=== PATIENT | male | born 1955 | race Caucasian/White ===

== ENCOUNTER 2023-11-07 15:31 | Inpatient (IN) | payer OTHER, MEDICAID ==
[~2023-11-07] VITALS: Ht 175.3 cm; Wt 75.3 kg
[2023-11-07 15:33] VITALS: BP_SYST 105; PULSE 92; RESP 18; TEMP 97.6; O2SAT 99
[2023-11-07] MEDS: MORPHINE 4 MG INJ. 4 MG/ML VIAL IM ONE (15:55)
[2023-11-07 16:41] LABS: BASOPHILS % (AUTO) 0.7 % (0.0-2.0); EOSINOPHILS # (AUTO) 0.3 K/uL (0.0-0.4); EOSINOPHILS % (AUTO) 3.9 % (0.0-4.0); HEMATOCRIT 31.1 % (36-54); HEMOGLOBIN 10.3 g/dL (14.0-18.0); LYMPHOCYTES # (AUTO) 1.9 K/uL (1.0-5.5); LYMPHOCYTES % (AUTO) 29.6 % (20.5-51.5); MEAN CORPUSCULAR HEMOGLOBIN 23 pg (27-31); MEAN CORPUSCULAR HGB CONC 33 % (32-36); MEAN CORPUSCULAR VOLUME 71 fL (79.0-98.0); MONOCYTES # (AUTO) 0.7 K/uL (0.0-1.0); MONOCYTES % (AUTO) 10.3 % (1.7-9.3); NEUTROPHILS # (AUTO) 3.7 K/uL (1.8-7.7); NEUTROPHILS % (AUTO) 55.5 % (40.0-70.0); PLATELET COUNT (AUTO) 148 K/uL (130-430); RED CELL DISTRIBUTION WIDTH 17.1 % (9.0-15.0); WHITE BLOOD COUNT (AUTO) 6.6 K/uL (4.8-10.8)
[2023-11-07] MEDS ORDERED: GABA-331 JT (16:46)
[2023-11-07] MEDS ORDERED: MELA3CAP2 JT (16:46)
[2023-11-07] MEDS ORDERED: SUCR1ORA JT (16:46)
[2023-11-07] MEDS ORDERED: FOLI-43 JT (16:46)
[2023-11-07] MEDS ORDERED: METF1000 JT (16:46)
[2023-11-07] MEDS ORDERED: ACET325T39 JT (16:46)
[2023-11-07] MEDS ORDERED: LANS30CA56 JT (16:46)
[2023-11-07] MEDS ORDERED: HYDR-3927 JT (16:46)
[2023-11-07] MEDS ORDERED: VERA80TA JT (16:46)
[2023-11-07] MEDS ORDERED: DOCU100T10 JT (16:46)
[2023-11-07] MEDS ORDERED: LORA-259 JT (16:46)
[2023-11-07] MEDS ORDERED: CELE-148 JT (16:46)
[2023-11-07 16:59] LABS: ALBUMIN 2.8 g/dL (3.4-4.8); CALCIUM 8.1 mg/dL (8.4-11.0); CREATININE 0.91 mg/dL (0.55-1.30); POTASSIUM 4.8 mmol/L (3.5-5.1); TOTAL BILIRUBIN 0.3 mg/dL (0.0-1.0)
[2023-11-07 17:00] LABS: PROTHROMBIN TIME 10.1 SECS (9.5-12.5)
[2023-11-07 17:09] LABS: BILIRUBIN,URINE NEGATIVE (NEGATIVE); BLOOD, URINE NEGATIVE (NEGATIVE); CLARITY/URINE CLEAR (CLEAR); COLOR,URINE YELLOW (YELLOW); GLUCOSE,URINE NEGATIVE (NEGATIVE); KETONES,URINE NEGATIVE (NEGATIVE); LEUKOCYTE ESTERASE ,URINE NEGATIVE (NEGATIVE); NITRITE, URINE NEGATIVE (NEGATIVE); PROTEIN URINE NEGATIVE (NEGATIVE); UROBILINOGEN,URINE 0.2 (0.2-1.0)
[2023-11-07 17:27] LABS: BILIRUBIN,DIRECT 0.1 mg/dL (0.0-0.3)
[2023-11-07] MEDS: KCL 20 mEq in D5/0.45NS 1000mL 1,000 ML IV SCH (18:31)
[2023-11-07] MEDS ORDERED: LORazepam 1 MG TABLET JT PRN (18:45)
[2023-11-07] MEDS ORDERED: NALOXONE HCL 0.4 MG/ML AMP (NARCAN) IVP PRN ×2 (18:45)
[2023-11-07] MEDS ORDERED: ONDANSETRON HCL 4 MG/2 ML VIAL IVP PRN (18:45)
[2023-11-07] MEDS ORDERED: ACETAMINOPHEN 325 MG TABLET JT PRN (18:45)
[2023-11-07] MEDS: HYDROmorphone 1 MG/ML INJ. CARTRIDGE IVP PRN (19:02)
[2023-11-07] MEDS ORDERED: DOCUSATE SODIUM 100 MG/10 ML UDC JT PRN (19:15)
[2023-11-07] MEDS: MELATONIN 3 MG TABLET JT SCH (21:00)
[2023-11-07] MEDS: GABAPENTIN 300 MG CAPSULE JT SCH (21:00)
[2023-11-07] MEDS: VERAPAMIL HCL 80 MG TABLET JT SCH (21:00)
[2023-11-07] MEDS: CELECOXIB 100 MG CAPSULE JT SCH (21:00)
[2023-11-07 21:20] VITALS: O2SAT 96
[2023-11-07] MEDS: SUCRALFATE 1 GM/10 ML UDC JT SCH (22:22)
[2023-11-07] MEDS: HYDROcodone/ACETAMIN 10-325 MG TAB JT PRN (22:23)
[2023-11-07] MEDS: ENOXAPARIN SODIUM 40 MG/0.4 ML SYRINGE SUBCUT SCH (22:23)
[2023-11-07] MEDS: PANTOPRAZOLE SODIUM 40 MG/VIAL (PROTONIX) IVP SCH (22:24)
[2023-11-08] MEDS: LORazepam 2 MG/ML VIAL IVP PRN (02:15)
[2023-11-08 08:00] VITALS: BP_SYST 127; PULSE 89; RESP 16; TEMP 96.5; O2SAT 97
[2023-11-08] MEDS: FOLIC ACID 1 MG TABLET JT SCH (09:00)
[2023-11-08] MEDS: KCL 20 mEq in D5/0.45NS 1000mL 1,000 ML IV SCH (09:36)
[2023-11-08 11:00] VITALS: BP_SYST 109; PULSE 99; RESP 16; TEMP 98.1; O2SAT 99
[2023-11-08 15:42] VITALS: BP_SYST 110; PULSE 66; RESP 15; TEMP 99.1; O2SAT 99
[2023-11-08 20:00] VITALS: BP_SYST 123; PULSE 91; RESP 18; TEMP 97.8; O2SAT 98
[2023-11-09] VITALS (8 sets, daily range): BP systolic 103–127; PULSE 78–106; RESP 17–19; TEMP 98.1–98.7; O2SAT 97–100
[2023-11-09] MEDS ORDERED: GASTROGRAFIN 120 ML ONE (09:51)
[2023-11-10 00:17] VITALS: BP_SYST 119
[2023-11-10 08:05] VITALS: BP_SYST 120; PULSE 89; RESP 17; O2SAT 98
[2023-11-10 12:27] VITALS: BP_SYST 120; PULSE 101; RESP 19; TEMP 98.2; O2SAT 98
[2023-11-10 16:01] VITALS: BP_SYST 121; PULSE 90; RESP 18; TEMP 98.4; O2SAT 99
[2023-11-10 20:00] VITALS: BP_SYST 119; PULSE 109; RESP 18; TEMP 97.6; O2SAT 98
[2023-11-11 01:13] VITALS: BP_SYST 123; PULSE 90; RESP 18; TEMP 97.8; O2SAT 99
[2023-11-11 08:00] VITALS: BP_SYST 126; PULSE 98; RESP 20; TEMP 98; O2SAT 98; O2SAT 99
[2023-11-11 12:26] VITALS: BP_SYST 110; PULSE 86; RESP 16; TEMP 97.5; O2SAT 98
[2023-11-11 16:35] VITALS: BP_SYST 125; PULSE 94; RESP 16; O2SAT 98
[2023-11-11] MEDS: HYDROmorphone 1 MG/ML INJ. CARTRIDGE IVP PRN (17:00)
[2023-11-11 20:00] VITALS: BP_SYST 106; PULSE 90; RESP 18; TEMP 97.4; O2SAT 98
[2023-11-12] VITALS: BP_SYST 109; PULSE 76; RESP 18; TEMP 96; O2SAT 99
[2023-11-12 08:37] VITALS: BP_SYST 124; PULSE 88; O2SAT 97
[2023-11-12] MEDS: DOCUSATE SODIUM 100 MG/10 ML UDC JT ONE (11:00)
[2023-11-12] MEDS ORDERED: MILK OF MAGNESIA 30 ML UDC JT PRN (11:00)
[2023-11-12 12:53] VITALS: BP_SYST 114; PULSE 82; RESP 17; TEMP 96.8; O2SAT 96
[2023-11-12] MEDS ORDERED: MILK OF MAGNESIA 30 ML UDC PO PRN (14:30)
[2023-11-12] MEDS ORDERED: ACETAMINOPHEN 325 MG TABLET PO PRN (14:31)
[2023-11-12] MEDS ORDERED: DOCUSATE SODIUM 100 MG/10 ML UDC PO PRN (14:32)
[2023-11-12] MEDS ORDERED: LORazepam 1 MG TABLET PO PRN (14:34)
[2023-11-12] MEDS: DOCUSATE SODIUM 100 MG/10 ML UDC PO ONE (14:48)
[2023-11-12] MEDS: VERAPAMIL HCL 80 MG TABLET PO SCH (15:00)
[2023-11-12] MEDS: GABAPENTIN 300 MG CAPSULE PO SCH (15:00)
[2023-11-12 16:00] VITALS: BP_SYST 121; PULSE 85; RESP 18; TEMP 97; O2SAT 97
[2023-11-12 20:00] VITALS: BP_SYST 110; PULSE 104; RESP 18; TEMP 98.2; O2SAT 98
[2023-11-12] MEDS: DOCUSATE SODIUM 100 MG/10 ML UDC PO SCH (20:20)
[2023-11-12] MEDS: CELECOXIB 100 MG CAPSULE PO SCH (20:20)
[2023-11-12] MEDS: SUCRALFATE 1 GM/10 ML UDC PO SCH (20:20)
[2023-11-12] MEDS: MELATONIN 3 MG TABLET PO SCH (20:21)
[2023-11-13] VITALS: BP_SYST 104; PULSE 102; RESP 18; TEMP 98.2
[2023-11-13 08:33] VITALS: BP_SYST 111; PULSE 94; RESP 17; TEMP 98; O2SAT 97
[2023-11-13] MEDS: FOLIC ACID 1 MG TABLET PO SCH (08:49)
[2023-11-13 12:03] VITALS: BP_SYST 110; PULSE 80; RESP 16; TEMP 98; O2SAT 99
[2023-11-13 16:00] VITALS: BP_SYST 126; PULSE 84; RESP 16; TEMP 98; O2SAT 95
[2023-11-13 19:45] VITALS: BP_SYST 108; PULSE 93; RESP 18; TEMP 96.7; O2SAT 97
[2023-11-14 00:15] VITALS: BP_SYST 114; PULSE 87; RESP 18; TEMP 97.4; O2SAT 100
[2023-11-14 03:00] VITALS: BP_SYST 123
[2023-11-14 06:00] LABS: BASOPHILS % (AUTO) 0.5 % (0.0-2.0); EOSINOPHILS # (AUTO) 0.1 K/uL (0.0-0.4); EOSINOPHILS % (AUTO) 2.9 % (0.0-4.0); HEMATOCRIT 33.3 % (36-54); HEMOGLOBIN 10.8 g/dL (14.0-18.0); LYMPHOCYTES # (AUTO) 1.6 K/uL (1.0-5.5); LYMPHOCYTES % (AUTO) 39.9 % (20.5-51.5); MEAN CORPUSCULAR HEMOGLOBIN 23 pg (27-31); MEAN CORPUSCULAR HGB CONC 32 % (32-36); MEAN CORPUSCULAR VOLUME 72 fL (79.0-98.0); MONOCYTES # (AUTO) 0.4 K/uL (0.0-1.0); MONOCYTES % (AUTO) 9.7 % (1.7-9.3); NEUTROPHILS # (AUTO) 1.8 K/uL (1.8-7.7); PLATELET COUNT (AUTO) 136 K/uL (130-430); RED BLOOD CELL COUNT(AUTO) 4.61 MIL/uL (4.2-6.2); RED CELL DISTRIBUTION WIDTH 16.8 % (9.0-15.0); WHITE BLOOD COUNT (AUTO) 3.9 K/uL (4.8-10.8)
[2023-11-14 06:05] VITALS: BP_SYST 130
[2023-11-14 06:34] LABS: CREATININE 0.92 mg/dL (0.55-1.30); POTASSIUM 4.7 mmol/L (3.5-5.1)
[2023-11-14 08:00] VITALS: BP_SYST 115; PULSE 70; RESP 18; TEMP 97.2; O2SAT 99
[2023-11-14] MEDS ORDERED: BARIUM SULFATE 135 ML SUSP.RECON (E-Z-HD) PO ONE (11:10)
[2023-11-14 11:12] VITALS: BP_SYST 100; PULSE 71; RESP 16; TEMP 96.3; O2SAT 98
[2023-11-14 20:00] VITALS: BP_SYST 139; PULSE 89; RESP 20; TEMP 97.8; O2SAT 97
[2023-11-15] VITALS: BP_SYST 120; PULSE 101; RESP 18; TEMP 98.2; O2SAT 100
[2023-11-15 08:22] VITALS: BP_SYST 148; PULSE 73; RESP 18; TEMP 97.3; O2SAT 99
[2023-11-15 09:33] VITALS: O2SAT 99
[2023-11-15 11:30] VITALS: BP_SYST 101; PULSE 77; RESP 16; TEMP 97.1; O2SAT 99
[2023-11-15 14:52] VITALS: BP_SYST 122; PULSE 105; RESP 16; TEMP 97; O2SAT 98
[2023-11-15 20:00] VITALS: BP_SYST 125; PULSE 96; RESP 20; TEMP 98; O2SAT 97
[2023-11-16 01:04] VITALS: BP_SYST 113; PULSE 90; RESP 18; TEMP 97.4; O2SAT 96
[2023-11-16 07:00] VITALS: O2SAT 98
[2023-11-16 08:00] VITALS: BP_SYST 144; PULSE 86; RESP 18; TEMP 97.6; O2SAT 97
[2023-11-16 12:00] VITALS: BP_SYST 128; PULSE 85; RESP 18; TEMP 97.6; O2SAT 97
[2023-11-16 16:00] VITALS: BP_SYST 135; PULSE 84; RESP 18; TEMP 97.8; O2SAT 96
[2023-11-16 20:00] VITALS: BP_SYST 138; PULSE 88; RESP 18; TEMP 97.1; O2SAT 97
[2023-11-17] VITALS: BP_SYST 120; PULSE 87; RESP 18; TEMP 98.7; O2SAT 95
[2023-11-17 12:30] VITALS: BP_SYST 125; PULSE 86; RESP 18; TEMP 98.2; O2SAT 97
[2023-11-17 16:46] VITALS: BP_SYST 122; PULSE 88; RESP 17; TEMP 98.5; O2SAT 96
[2023-11-17 18:06] VITALS: BP_SYST 110; PULSE 92; RESP 17; TEMP 98.6; O2SAT 97
[2023-11-17] MEDS: HYDROcodone/ACETAMIN 10-325 MG TAB PO PRN (18:17)
== END 2023-11-17 18:25 | DRG 919 ==
LOC: SED 15:31 → SMU 17:48
PROVIDERS: ADMIT Family Medicine; ATTEND Family Medicine
DX: T85.528A Displacement of other gastrointestinal prosthetic devices, implants and grafts, initial encounter (principal); E43 Unspecified severe protein-calorie malnutrition; K94.13 Enterostomy malfunction; K22.2 Esophageal obstruction; I10 Essential (primary) hypertension; Y83.9 Surgical procedure, unspecified as the cause of abnormal reaction of the patient, or of later complication, without mention of misadventure at the time of the procedure; D64.9 Anemia, unspecified; K74.60 Unspecified cirrhosis of liver; E11.9 Type 2 diabetes mellitus without complications; Z79.899 Other long term (current) drug therapy; Z68.24 Body mass index [BMI] 24.0-24.9, adult
CPT/HCPCS: 36415; 74220; 80048; 80076; 81001; 81003; 82150; 82948; 83605; 83690; 85025; 85610; 85730; 87081; 92610-GN; 97110-GP; 97530-GP; 99285; C9113; J1170; J1650; J2060; J2270; Q9963